=== PATIENT | female | born 1980 ===

== ENCOUNTER 2024-12-06 12:42 | Emergency (ER) | payer MEDICAID, SELFPAY ==
[2024-12-06 13:18] VITALS: BP 130/77; PULSE 79; RESP 16; TEMP 36.9; O2SAT 98; BMI 33.6
--- NOTE | 2024-12-06 13:20 | ED.GENADULT ---
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 Patient states that over the last 3 days she felt as though something is wrong with her body and is having right upper quadrant fullness . Patient states that she has been in the process of being tapered off of multiple psychiatric medications and things have been difficult . Patient states that she had genetic testing done and saw on that genetic testing that she is at higher risk for pancreatic issues . Related Data Allergies Allergy/AdvReac Type Severity Reaction Status Date / Time No Known Allergies (No Known Allergy Verified 12/06/24 13:19 Allergies*) Review of Systems Constitutional: Constitutional: Reports as per HPI Eyes: Eyes: Reports as per HPI ENT: Reports as per HPI Cardiovascular: Cardiovascular: Reports as per HPI Respiratory: Respiratory: Reports as per HPI Gastrointestinal: Gastrointestinal: Reports as per HPI Genitourinary: Genitourinary: Reports as per HPI Musculoskeletal: Musculoskeletal: Reports as per HPI Integumentary/Breasts: Skin/Breast: Reports as per HPI Neurologic: Reports as per HPI Psychiatric: Psychiatric: Reports as per HPI Endocrine: Endocrine: Reports as per HPI Hematologic/Lymphatic: Hematologic/Lymphatic: Reports as per HPI Allergic/Immunologic: Allergic/Immunologic: Reports as per HPI [facility] Past Medical History Attestation statement: The following information was validated with the patient. Source: old records reviewed and nursing notes reviewed Social History Social History Advance Directives: No Advance Directives Information Provided: No Physical Exam ED Vital Signs: Vital Signs - 24 hr 12/06/24 13:18 12/06/24 15:42 Temperature 98.4 F 98.4 F Pulse Rate 79 79 Respiratory Rate 16 16 Blood Pressure 130/77 130/77 Pulse Oximetry 98 98 Oxygen Delivery Method Room Air Room Air BMI result Body Mass Index 33.6 Const General: cooperative, no acute distress, alert and awake Nutritional Appearance: well nourished Orientation/consciousness: patient oriented x3 HENWI Head: Yes normal to inspection and Yes atraumatic Ears: hearing grossly normal bilaterally and external ears normal General nose exam: Normal external nose present, no nasal discharge noted and no epistaxis Face and sinus: Yes normal facial exam, No abrasion and No laceration Mouth: Normal oral and palatal mucosa present, no drooling and no muffled voice Eyes General: appearance normal, both eyes and all related structures Periorbital: periorbital findings normal Eyelids: Yes eyelids normal Conjunctivae: conjunctivae normal Pupils: Equal, round and reactive pupils present EOM: EOMs intact bilaterally Neck Neck: Yes normal visual inspection and Yes full ROM Resp Effort & Inspection: normal respiratory effort and able to speak in complete sentences Neuro General: patient oriented x3, moves all extremities and CN's II-XI intact bilaterally Cranial nerves: Yes Equal, round and reactive pupils present Cognition (Neuro): normal cognition Extrem General: Yes normal to inspection, Yes full ROM and Yes capillary refill normal Psych Other: intermittently tearful Appearance: grossly normal Mental Status: mental status grossly normal Affect: Labile affect present Course Course Course Narrative: Rapid medical examination performed in triage by Alyssa Chang PA-C. Patient is a 44 year old assigned female at presenting to the emergency department with RUQ abdominal pain. Detailed physical exam and review of systems are deferred to the farm tractor operator. EKG, labs ordered. Patient placed back in the waiting room pending room availability and results. 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 Patient's limited physical exam performed inside of and directly outside of the triage space was as noted in the physical exam portion of this note. Patient was ambulating with a steady gait and no assistance, speaking clear sentences. Patient was intermittently tearful. Patient's blood work showed a WBC count of 11.4 and an ALT of 42. Patient's elevated WBC count is likely secondary to a stress reaction and not an infectious pathology. Patient unlikely to have liver pathology given the rest of her LFTs were WNL. The rest of the patient's lab work was unremarkable. Patient did not provide a urine sample while in the department. Patient's EKG was unremarkable. Patient came to the triage space from the waiting room and requested an estimation on how much longer she would have to wait and for her results to be explained to her. I explained to the patient all of her results and that I recommend she continue to wait to receive medication for her abdominal pain / nausea as well as imaging of her abdomen. The patient asked how she would get her results and I explained to the patient that there is a patient portal but that I would also print them out for her. After approximately 20 minutes, the patient returned to the triage space and stated that she could no longer wait in the waiting room because of her mental illness at which point I offered to let her wait in a recliner within the hallway space outside of triage but away from the waiting room and she stated that she could not tolerate waiting there either. At that point, the patient asked me if I understood mental illness and her partner then stated a teenager got brought back and let go before she was brought back and began to raise his voice. I attempted to explain to the patient and her partner that the emergency department has a triage system and at that time - the patient's partner stated you're not speaking professionally . I attempted to clarify what part of my triage explanation was unprofessional, he stated you should apologize at which point I did apologize to the patient and her partner about the miscommunication during our interaction and attempted again to clarify and de-escalate the situation. At that point, the patient grabbed her discharge paperwork and lab results from my hand and demanded to leave. I again explained to the patient that I recommend she wait for imaging and she again stated she understood that she should wait but she can't tolerate waiting any longer and will be leaving. Patient was let out of the department by a passing by biomedical engineering technologist. Differential Diagnosis Differential Diagnoses: The differential diagnosis associated with the presentation includes Epigastric pain Abdominal pain Nausea Admission/Observation Consideration of admission/observation: Escalation of care including admission/observation considered Patient would have been admitted to the hospital had her partially completed work up had any findings where hospital admission was appropriate, she completed her work up - including imaging, her clinical presentation warranted hospital admission, and had she not demanded to leave. Lab Data MDM Lab Attestation statement: I reviewed the patient's lab results. My interpretation of these results are in the MDM Rationale portion of this note. 12/06/24 13:42 12/06/24 13:42 Labs: Lab Results 12/06/24 Range/Units 13:42 WBC 11.4 H (4.8-10.8) X10*3/uL RBC 4.90 (4.20-5.50) X10*6/uL Hgb 15.3 (12.0-16.0) g/dl Hct 46.8 (37.0-47.0) % MCV 95.5 (80.0-98.0) fL MCH 31.2 (27.0-33.0) pg MCHC 32.7 (31.0-35.0) g/dl RDW 13.0 (11.0-16.0) % Plt Count 326 (160-400) X10*3/uL MPV 10.0 (9.4-12.3) fL Immature Gran % (Auto) 0.4 (0.0-0.4) % Neut % (Auto) 58.8 (45-73) % Lymph % (Auto) 30.5 (20-40) % Buchanan % (Auto) 5.8 (2-11) % Eos % (Auto) 3.8 (0-4) % Baso % (Auto) 0.7 (0-2) % Lymph # (Auto) 3.5 (1.2-4.9) X10*3/uL Buchanan # (Auto) 0.7 (0.1-1.2) X10*3/uL Eos # (Auto) 0.4 (0.0-0.4) X10*3/uL Baso # (Auto) 0.1 (0.0-0.2) X10*3/uL Abs Immat Gran (auto) 0.04 H (0.00-0.03) X10*3/uL Absolute Neuts (auto) 6.7 (2.0-8.3) x10*3/uL Absolute Nucleated RBC 0.000 (0.0-0.012) X10*3/uL Nucleated RBC % (auto) 0.0 (0.0-0.2) /100WBC Sodium 139 (135-145) mmol/L Potassium 4.8 (3.3-5.1) mmol/L Chloride 106 (96-108) mmol/L Carbon Dioxide 27 (22-29) mmol/L Anion Gap 11 L (12-20) BUN 7 L (9-16) mg/dL Creatinine 0.69 (0.5-1.4) mg/dL Estim Creat Clear Calc 115.0 Estimated GFR > 60 Random Glucose 111 (60-115) mg/dL Calcium 9.6 (8.4-10.2) mg/dL Total Bilirubin 0.8 (0.0-1.0) mg/dL AST 26 (5-31) U/L ALT 42 H (0-31) U/L Alkaline Phosphatase 85 (39-117) U/L Total Protein 7.5 (6.5-8.0) g/dL Albumin 4.8 (3.5-5.0) g/dL Lipase 27 (8-78) U/L Discharge Plan Discharge Clinical Impression: Epigastric abdominal pain, Nausea Patient Disposition: Home, Self-Care Instructions: Acute Nausea and Vomiting (DC), Acute Abdominal Pain (DC) Additional Instructions: Your lab work today was reassuring. If you change your mind about having imaging obtained - please return to your nearest emergency department or call 911 immediately. IF you are prescribed home medications and/or you are taking over the counter medications at home - it is very important you continue to do so as prescribed / directed unless told otherwise. Follow up with your primary care provider. Return to the emergency department immediately if your symptoms worsen or if you develop any numbness, tingling, dizziness, shortness of breath, difficulty breathing, chest pain, blurry vision, loss of vision, nausea, vomiting, abdominal pain, fever, chills, back pain, or any other complaints. Please see the information below about our Patient Portal. If you are not yet enrolled in the [facility] Patient Portal, you will receive an enrollment email invitation following your visit to any [facility] care setting. You may also self-enroll in the Patient Portal by visiting our website: [email or web address] The following information is required to access the Patient Portal: - Your [facility] Medical Record Number - Your personal home email address (must match what is in your electronic medical record, Registration staff can assist with this) - Name - Date of Capabilities of the Patient Portal: - Message some providers - View upcoming appointments - Access your health summary, medical history, and visit history - View current conditions and allergies - View procedure and lab results - View your medications, including guidelines, side effects, and precautions - Complete pre-appointment questionnaires requested by your provider - Ready summary reports of your office visits and procedures To access the Patient Portal Mobile [employer], follow these directions: - Search [employer] in the [employer] Store or [employer] Store - Download the Rosalinda - Search for [facility] - Enter your login/password Referrals: Brice Donato PA-C [Primary Care Provider, Internal Medicine] Interventions: ED Discharge Assessment Last Done: 12/06/24 15:42 Discharge Date/Time: 12/06/24 16:01 Print Language: Sami
--- NOTE | 2024-12-06 13:21 | ECG_ITS ---
Test Reason : dizziness / sob Blood Pressure : */* mmHG Vent. Rate : 78 BPM Atrial Rate : 78 BPM P-R Int : 176 ms QRS Dur : 80 ms QT Int : 378 ms P-R-T Axes : 46 49 33 degrees QTcB Int : 430 ms Normal sinus rhythm Normal ECG No previous ECGs available Referred By: Alyssa Chang Electronically Signed By: FAIZA TURNER
[2024-12-06 13:48] LABS: MANUAL DIFF FLAG NO
[2024-12-06 13:51] LABS: Hematocrit 46.8 % (37.0-47.0); Hemoglobin 15.3 g/dl (12.0-16.0); Imm Gran Abs Auto 0.04 X10*3/uL (0.00-0.03); Imm Gran Pct Auto 0.4 % (0.0-0.4); Lymphocytes Absolute Auto 3.5 X10*3/uL (1.2-4.9); Mean Corpuscular HGB Conc 32.7 g/dl (31.0-35.0); Mean Corpuscular Hemoglobin 31.2 pg (27.0-33.0); Mean Corpuscular Volume 95.5 fL (80.0-98.0); NRBC Abs Auto 0.000 X10*3/uL (0.0-0.012); NRBC Pct Auto 0.0 /100WBC (0.0-0.2); Platelet Count 326 X10*3/uL (160-400); Red Blood Count 4.90 X10*6/uL (4.20-5.50); White Blood Count 11.4 X10*3/uL (4.8-10.8)
[2024-12-06 14:04] LABS: Alanine Aminotransferase 42 U/L (0-31); Albumin Level 4.8 g/dL (3.5-5.0); Alkaline Phosphatase 85 U/L (39-117); Anion Gap 11 (12-20); Aspartate Amino Transferase 26 U/L (5-31); Blood Urea Nitrogen 7 mg/dL (9-16); Calcium 9.6 mg/dL (8.4-10.2); Carbon Dioxide 27 mmol/L (22-29); Chloride 106 mmol/L (96-108); Creatinine Clr Calc Pharmacy 115.0; Estimated Glomerular Filt Rate > 60; Lipase 27 U/L (8-78); Potassium 4.8 mmol/L (3.3-5.1); Sodium 139 mmol/L (135-145); Total Protein 7.5 g/dL (6.5-8.0)
[2024-12-06 15:42] VITALS: BP 130/77; PULSE 79; RESP 16; TEMP 36.9; O2SAT 98
--- NOTE | 2024-12-06 15:59 | PC.NURSE ---
Pt becoming escalated in waiting room. Refusing to wait for imaging. Discharged by provider, in an agitated state. Pt's tour narrator becoming increasingly threatening, verbally aggressive.
--- OUTSIDE RECORDS SUMMARY | 2024-12-06 18:58 | XMS_ITS | Encounter Summary ---
Author Organization [facility] Address [address] [place] [phone] Phone Care Team Providers Care Escapement Maker Name Role Phone Mandie Christianson NP Unavailable [phone] Carissa Mulligan MD Unavailable [phone] Mandie Christianson WRAPPING CLERK Primary Care Provider [phone] Isrrael Corona MD Unavailable Renata Dior BILLET CUTTER Primary Care Provider [phone] Brice DonatoC Primary Care Provider [phone] Encounter Details Date Type Department Care Team (Late st Contact Info) Description 04/04/2020 Procedure Pass [facility] - [address] [place] [address] Social History Tobacco Use Types Packs/Day Years Used Date Smoking Tobacco: Every Day Cigarettes 0.3 17 Smokeless Tobacco: Never Alcohol Use Standard Drinks/Week Comments Yes 0 (1 standard drink = 0.6 oz pure alcohol) 1-2 glasses of wine per night lately Child or Family Care Answer Date Record ed Do you have problems with on e of the following making it difficult for you to work, study, or receive health care? No 04/03/2020 Education Answer Date Recorded Are you interested in help w ith more adult education (for example, completing high school, GED, job training, learning the Afghan language, technical skills, or developing parenting skills)? No 04/03/2020 Are you concerned about learning? Not on file 04/03/2020 Not on file 04/03/2020 Not on file 04/03/2020 Food Answer Date Recorded Within the past 6 months we worried whether our food would run out before we got money to buy more. Never True 04/03/2020 Within the past 6 months the food we bought just didn't last and we didn't have enough money to get more. Never True Paying for Meds Answer Date Recorded Do you have trouble paying for medicines? No 04/03/2020 Paying Utility Bills Answer Date Record ed Do you have trouble paying your heating or elect ricity bill? No 04/03/2020 Transportation Answer Date Recorded Has the lack of transportati on kept you from medical appointments or from getting medications? No 04/03/2020 Comments No Sex and Gender Information Value Date Recorded Sex Assigned at Not on file Legal Sex Female 9:22 PM EDT Gender Identity Not on file Sexual Orientation Not on file documented as of this encounter Plan of Treatment Upcoming Encounters Date Type Department Care Team (Late st Contact Info) Description 11/12/2024 Procedure Pass [facility] [address] [place] [address] 12/08/2024 10:00 AM EDT Office Visit [facility] Internal Medicine [address] [place] [address] Roxann Rocha PA-C [address] [place] [address] 12/30/2024 2:30 PM EST Appointment [facility] [address] [place] [address] Brice Donato PA-C [address] [place] [address] 06/13/2025 11:20 AM EDT Office Visit [facility] Internal Medicine [address] [place] [address] Brice Donato PA-C [address] [place] [address] documented as of this encounter Visit Diagnoses Not on filedocumented in this encounter Additional Health Concerns Assessment Noted Time PHQ-9 Depression Total Score: 11 021 5:50 PM EST PHQ-2 Depression Total Score: 4 04/03/19 21 5:50 PM EST documented as of this encounter Care Teams Escapement Maker Relationship Specialty Start Date End Date Mandie Christianson, WRAPPING CLERK PCP - General Family Medicine 01/05/18 04/15/23 Renata Dior FNP [address] [place] [address] PCP - General Nurse Practitioner 04/16/23 04/01/24 Brice Donato PA-C [address] [place] [phone] PCP - General Physician Parking Meter Collector 04/02/24 Mandie Christianson, WRAPPING CLERK Historical LMR Provider 11/27/16 Carissa Mulligan MD [address] [place] [address] Orthopedics [facility] Sports Medicine, [place] [address] Historical LMR Provider 11/27/16 Isrrael Corona MD [address] [place] [phone] Insurance Assigned Provider 05/19/21 10/19/22 documented as of this encounter Additional Source Comments The information contained in this document represents components of the legal health record. It is not the complete legal health record.[facility]
--- OUTSIDE RECORDS SUMMARY | 2024-12-06 18:58 | XMS_ITS | Encounter Summary ---
Author Organization [facility] Address [address] [address] Phone Care Team Providers Care Wildlife Forensic Geneticist Name Role Phone Mandie Christianson DIVE SUPERINTENDENT Unavailable [phone] Brice Donato PA-C Primary Care Provider Encounter Details Date Type Department Care Team (Late st Contact Info) Description 06/09/2024 Procedure Pass [facility], [address] [address] Social History Tobacco Use Types Packs/Day Years Used Date Smoking Tobacco: Some Days Cigarettes 0.3 18.8 Started: 03/15/2004; Last attempted to quit: 03/15/2021 Smokeless Tobacco: Never Comments:on and off Alcohol Use Standard Drinks/Week Comments Not Currently 0 (1 standard drink = 0.6 oz pur e alcohol) 3-4 drinks, 2-4 x month Child or Family Care Answer Date Record ed Do you have problems with on e of the following making it difficult for you to work, study, or receive health care? I choose not to answer 06/09/2024 Education Answer Date Recorded Are you interested in help w ith more adult education (for example, completing high school, GED, job training, learning the Montenegrin language, technical skills, or developing parenting skills)? No 06/09/2024 Are you concerned about learning? Not on file 06/09/2024 No 06/09/2024 Yes 06/09/2024 Food Answer Date Recorded Within the past 6 months we worried whether our food would run out before we got money to buy more. Never True 06/09/2024 Within the past 6 months the food we bought just didn't last and we didn't have enough money to get more. Never True Residential Stability Answer Date Recor ded What is your housing situation today? I have yair ling 06/09/2024 How many times have you move d in the past 12 months? Zero (I did not move) 06/09/2024 Paying for Meds Answer Date Recorded Do you have trouble paying for medicines? No 06/09/2024 Paying Utility Bills Answer Date Record ed Do you have trouble paying your heating or elect ricity bill? No 06/09/2024 Transportation Answer Date Recorded Has the lack of transportati on kept you from medical appointments or from getting medications? No 06/09/2024 Unemployment Answer Date Recorded Are you currently unemployed or working on a part-time or temporary basis, and looking for work? I choose not to answer 06/09/2024 Digital Access Answer Date Recorded No 06/09/2024 Yes 06/09/2024 Do you have reliable internet access at home? Ye s 06/09/2024 Do you have a device (e.g., phone, tablet, computer) with a working camera? Yes 06/09/2024 SNAP & WIC Answer Date Recorded Do you receive benefits from SNAP (the Supplemental Nutrition Assistance Program) or the Food Stamp Program? Not sure 06/09/2024 SNAP is a free program that can help you and your family get access to healthy foods, nutrition classes, utility discounts, and more. Would you be interested in learning more? Not sure 06/09/2024 Can we help you enroll in SNAP? Not on file 06/09/2024 Benefits received from WIC? Not on file 05/13 WIC is a free program, interested in learning mo re? Not on file 06/09/2024 Can we help you enroll in WIC? Not on file 0 06/09/2024 Intimate Partner Violence Answer Date R ecorded Denied Basic Needs Not on file 06/09/2024 In the past 12 months have y ou been in a relationship with a person who hurts, threatens, or tries to control you? No 06/09/2024 Worried food would run out Not on file 06/09 In the past 12 months have y ou been in a relationship with a person who hurts, threatens, or tries to control you? No 06/09/2024 Comments No Sex and Gender Information Value Date Recorded Sex Assigned at Not on file Legal Sex Female 9:22 PM EDT Gender Identity Not on file Sexual Orientation Not on file documented as of this encounter Plan of Treatment Upcoming Encounters Date Type Department Care Team (Late st Contact Info) Description 11/12/2024 Procedure Pass [facility] [address] [place] [id number] 12/08/2024 10:00 AM EDT Office Visit [facility] Internal Medicine [address] [place] [address] Roxann Rocha PA-C [address] [place] [address] 12/30/2024 2:30 PM EST Appointment [facility] Echo [facility] [address] [place] [address] Brice Donato PA-C [address] [place] [phone] 06/13/2025 11:20 AM EDT Office Visit [facility] Internal Medicine [address] [place] [address] Brice Donato PA-C [address] [place] [address] documented as of this encounter Visit Diagnoses Not on filedocumented in this encounter Additional Health Concerns Assessment Noted Time PHQ-9 Depression Total Score: 16 025 2:00 AM EDT PHQ-2 Depression Total Score: 5 06/10/19 25 2:00 AM EDT documented as of this encounter Care Teams Wildlife Forensic Geneticist Relationship Specialty Start Date End Date Brice Donato PA-C [address] [place] [id number] [email or web address] PCP - General Physician Drywall Metal Stud Worker 04/02/24 Mandie Christianson NP [email or web address] Historical LMR Provider 11/27/16 documented as of this encounter Additional Source Comments The information contained in this document represents components of the legal health record. It is not the complete legal health record.[facility]
--- OUTSIDE RECORDS SUMMARY | 2024-12-06 18:58 | XMS_ITS | Encounter Summary ---
Author Organization [facility] Address [address] [place] [address] Phone Care Team Providers Care Protective Signal Operations Supervisor Name Role Phone Mandie Christianson SLIP TENDER Unavailable [phone] Mandie Christianson SLIP TENDER Primary Care Provider [phone] Isrrael Corona MD Unavailable Renata Dior ASSISTANT MANAGER QUALITY MANAGEMENT Primary Care Provider [phone] Brice Donato PA-C Primary Care Provider [phone] Encounter Details Date Type Department Care Team (Late st Contact Info) Description 05/31/2022 Procedure Pass [facility] - [address] [place] [address] Social History Tobacco Use Types Packs/Day Years Used Date Smoking Tobacco: Former Cigarettes 0.3 17 0 03/15/2004 - 03/15/2021 Smokeless Tobacco: Never Comments:on/off for the past year (04/12/2021) Alcohol Use Standard Drinks/Week Comments Yes 0 (1 standard drink = 0.6 oz pure alcohol) 2-3 glasses of wine 3 days per week Child or Family Care Answer Date Record ed Do you have problems with on e of the following making it difficult for you to work, study, or receive health care? No 05/28/2022 Education Answer Date Recorded Are you interested in help w ith more adult education (for example, completing high school, GED, job training, learning the Surinamese language, technical skills, or developing parenting skills)? No 05/28/2022 Food Answer Date Recorded Within the past 6 months we worried whether our food would run out before we got money to buy more. Never True 05/28/2022 Within the past 6 months the food we bought just didn't last and we didn't have enough money to get more. Never True Residential Stability Answer Date Recor ded What is your housing situation today? I have yair sing 05/28/2022 How many times have you move d in the past 12 months? Zero (I did not move) 05/28/2022 Paying for Meds Answer Date Recorded Do you have trouble paying for medicines? No 05/28/2022 Paying Utility Bills Answer Date Record ed Do you have trouble paying your heating or elect ricity bill? No 05/28/2022 Transportation Answer Date Recorded Has the lack of transportati on kept you from medical appointments or from getting medications? No 05/28/2022 Unemployment Answer Date Recorded Are you currently unemployed or working on a part-time or temporary basis, and looking for work? No 05/28/2022 Comments No Sex and Gender Information Value Date Recorded Sex Assigned at Not on file Legal Sex Female 9:22 PM EDT Gender Identity Not on file Sexual Orientation Not on file documented as of this encounter Plan of Treatment Upcoming Encounters Date Type Department Care Team (Late st Contact Info) Description 11/12/2024 Procedure Pass [facility] [address] [place] [address] 12/08/2024 10:00 AM EDT [facility] [address] [place] [address] Roxann Rocha PA-C [address] [place] [address] 12/30/2024 2:30 PM EST Appointment [facility] [address] [place] [address] Brice Donato PA-C [address] [place] [address] 06/13/2025 11:20 AM EDT Office Visit [facility] [address] [place], [place] [phone] Brice Donato PA-C [address] [place] [address] [email or web address] documented as of this encounter Visit Diagnoses Not on filedocumented in this encounter Additional Health Concerns Assessment Noted Time PHQ-9 Depression Total Score: 11 021 5:50 PM EST PHQ-2 Depression Total Score: 0 05/29/19 23 8:44 AM EDT documented as of this encounter Care Teams Protective Signal Operations Supervisor Relationship Specialty Start Date End Date Mandie Christianson SLIP TENDER PCP - General Family Medicine 01/05/18 04/15/23 Renata Dior FNP [address] [place] [id number] PCP - General Nurse Practitioner 04/16/23 04/01/24 Brice Donato PA-C [address] [place] [phone] PCP - General Physician Director Of Community Services 04/02/24 Mandie Christianson SLIP TENDER Historical LMR Provider 11/27/16 Isrrael Corona MD [address] [place] [phone] Insurance Assigned Provider 05/19/21 10/19/22 documented as of this encounter Additional Source Comments The information contained in this document represents components of the legal health record. It is not the complete legal health record.[facility]
--- OUTSIDE RECORDS SUMMARY | 2024-12-06 18:58 | XMS_ITS | Encounter Summary ---
Author Organization [facility] Address [address] [place] [address] Phone Care Team Providers Care Supervisor Winter Name Role Phone Mandie Christianson SURVEILLANCE AGENT Unavailable [phone] Renata Dior CARDIOVASCULAR TECHNICIAN Primary Care Provider [phone] Brice Donato PA-C Primary Care Provider [phone] Encounter Details Date Type Department Care Team (Late st Contact Info) Description 08/18/2023 Procedure Pass [address] [place] [address] Social History Tobacco Use Types Packs/Day Years Used Date Smoking Tobacco: Former Cigarettes 0.3 17 0 03/15/2004 - 03/15/2021 Smokeless Tobacco: Never Comments:on/off for the past year (04/12/2021) Alcohol Use Standard Drinks/Week Comments Yes 2 (1 standard drink = 0.6 oz pure alcohol) 2-3 glasses of wine 1 days per week Child or Family Care Answer Date Record ed Do you have problems with on e of the following making it difficult for you to work, study, or receive health care? I choose not to answer 04/17/2023 Education Answer Date Recorded Are you interested in help w ith more adult education (for example, completing high school, GED, job training, learning the Hungarian language, technical skills, or developing parenting skills)? No 04/17/2023 Are you concerned about learning? Not on file 04/17/2023 No 04/17/2023 Yes 04/17/2023 Food Answer Date Recorded Within the past 6 months we worried whether our food would run out before we got money to buy more. I choose not to answer 04/17/2023 Within the past 6 months the food we bought just didn't last and we didn't have enough money to get more. I choose not to answer 04/17/2023 Residential Stability Answer Date Recor ded What is your housing situation today? I have yair ling 04/17/2023 How many times have you move d in the past 12 months? Zero (I did not move) 04/17/2023 Paying for Meds Answer Date Recorded Do you have trouble paying for medicines? No 04/17/2023 Paying Utility Bills Answer Date Record ed Do you have trouble paying y our heating or electricity bill? I choose not to answer 04/17/2023 Transportation Answer Date Recorded Has the lack of transportati on kept you from medical appointments or from getting medications? I choose not to answer 04/17/2023 Unemployment Answer Date Recorded Are you currently unemployed or working on a part-time or temporary basis, and looking for work? I choose not to answer 04/17/2023 Digital Access Answer Date Recorded No 04/17/2023 Yes 04/17/2023 Do you have reliable internet access at home? Ye s 04/17/2023 Do you have a device (e.g., phone, tablet, computer) with a working camera? Yes 04/17/2023 Intimate Partner Violence Answer Date R ecorded Denied Basic Needs Not on file 04/17/2023 In the past 12 months have y ou been in a relationship with a person who hurts, threatens, or tries to control you? No 04/17/2023 Worried food would run out Not on file 04/16 In the past 12 months have y ou been in a relationship with a person who hurts, threatens, or tries to control you? No 04/17/2023 Comments No Sex and Gender Information Value Date Recorded Sex Assigned at Not on file Legal Sex Female 9:22 PM EDT Gender Identity Not on file Sexual Orientation Not on file documented as of this encounter Plan of Treatment Upcoming Encounters Date Type Department Care Team (Late st Contact Info) Description 11/12/2024 Procedure Pass [facility] [address] [place] [address] 12/08/2024 10:00 AM EDT Office Visit [facility] [address] [place] [address] Roxann Rocha PA-C [address] [place] [address] 12/30/2024 2:30 PM EST Appointment [facility] [address] [place] [address] Brice Donato PA-C [address] [place], [place] [phone] 06/13/2025 11:20 AM EDT Office Visit [facility] [address] [place] [address] Brice Donato PA-C [address] [place], [place] [phone] [email or web address] documented as of this encounter Visit Diagnoses Not on filedocumented in this encounter Additional Health Concerns Assessment Noted Time PHQ-9 Depression Total Score: 19 024 2:24 PM EDT PHQ-2 Depression Total Score: 3 08/11/19 24 2:24 PM EDT documented as of this encounter Care Teams Supervisor Winter Relationship Specialty Start Date End Date Renata Dior FNP [address] [place] [address] PCP - General Nurse Practitioner 04/16/23 04/01/24 Brice Donato PA-C [address] [place] [id number] [email or web address] PCP - General Physician Motorcycle Deliverer 04/02/24 Mandie Christianson, SURVEILLANCE AGENT [email or web address] Historical LMR Provider 11/27/16 documented as of this encounter Additional Source Comments The information contained in this document represents components of the legal health record. It is not the complete legal health record.[facility]
--- OUTSIDE RECORDS SUMMARY | 2024-12-06 18:58 | XMS_ITS | Encounter Summary ---
Author Organization [facility] Address [address] [place] [address] Phone Care Team Providers Care Psychologist Educational Name Role Phone Mandie Christianson SAFETY EQUIPMENT TESTING SPECIALIST Unavailable [phone] Brice Donato PA-C Primary Care Provider [phone] Reason for Visit * Reason Onset Date Comments RUQ pain 12/06/2024 Encounter Details Date Type Department Care Team (Late st Contact Info) Description 12/06/2024 Telephone [employer] [facility] [address] [place], [place] [phone] Margaret Rojas, MOHAN [address] [place], [place] [id number] [email or web address] RUQ pain Social History Tobacco Use Types Packs/Day Years [...] high school, GED, job training, learning the Algerian language, technical skills, or developing parenting skills)? [...] housing situation today? I have yair sing 06/09/2024 How many times have you move [...] on file documented as of this encounter Progress Notes * Margaret Rojas RN - 12/06/2024 1:07 PM EDT LVM for Ladan to call back. * Margaret Rojas RN - 12/06/2024 1:07 PM EDT Images from the original note were not included. Brice Donato PA-C [facility] Caller: Unspecified (Today, 11:23 AM) Who is titrating her off of her benzos and SSRI? As for her right upper quadrant pain this could be her gallbladder or possibly pancreatitis as it can radiate over to the right upper quadrant. I agree if her pain does worsen she is going to need norma seen in the emergency department where they are able to do urgent imaging. * Margaret Rojas RN - 12/06/2024 11:26 AM EDT Spoke to Ladan. States she is having right upper quadrant pain. Pain is constant, 3/10 at worst. States it's not excruciating, but a solid cramp. States she does have some abdominal bloating. States she is also coming off benzodiazepines, unsure if it's relation. No vomiting, fever. Has some nausea, hasn't eaten much since yesterday. No jaundice. She has loose stool intermittently, 1-2 times a day, but does not think this is related, this is common for her. She is trying to avoid the ER. Scheduled Friday with [facility]. Then she states her abdominal is tender to the touch, just a little sore,not dramatic, not extreme pain. Advised if abdomen is tender to the touch, she should be seen today in the ER. She started crying, and States she is going through withdrawals from SSRI's and Benzos.She states I am calling because I don't think I can handle the ER, and I won't go, unless I am dying, and the pain is not that bad It just feels a little better when I hold it, it's not extreme pain. * Margaret Rojas RN - 12/06/2024 11:24 AM EDT Pt called and LVM. States she thinks she has pancreatitis. States she has RUQ pain, that goes through to the back. Has had this for 1-2 days. States it's crampy and achy. No fever, nausea or vomiting. States she isn't a big drinker, but she is a smoker. She is wondering if there is testing, labs, or imaging Brice can do. She does not want to to go to the ER. documented in this encounter Plan of Treatment Upcoming Encounters Date Type Department Care Team (Late st Contact Info) Description 11/12/2024 Procedure Pass [facility] [address] [place] [address] 12/08/2024 10:00 AM EDT Office Visit [facility] [address] [place] [address] Roxann Rocha PA-C [address] [place] [address] 12/30/2024 2:30 PM EST Appointment [facility] [address] [place] [address] Brice Donato PA-C [address] [place] [address] [email or web address] 06/13/2025 11:20 AM EDT Office Visit [facility] [address] [place] [address] Brice Donato PA-C [address] [place] [address] documented as of this encounter Visit Diagnoses Not on filedocumented in this encounter Additional Health Concerns Assessment Noted Time PHQ-9 Depression Total Score: 16 025 2:00 AM EDT PHQ-2 Depression Total Score: 5 06/10/19 25 2:00 AM EDT documented as of this encounter Care Teams Psychologist Educational Relationship Specialty Start Date End Date Brice Donato PA-C [address] [place] [address] PCP - General Physician Craft Coordinator 04/02/24 Mandie Christianson NP Historical LMR Provider 11/27/16 documented as of this encounter Additional Source Comments The information contained in this document represents components of the legal health record. It is not the complete legal health record.[facility]
--- OUTSIDE RECORDS SUMMARY | 2024-12-06 18:58 | XMS_ITS | Encounter Summary ---
Author Organization [facility] Address [address] [address] Phone Care Team Providers Care Roller Shop Utility Worker Name Role Phone Mandie Christianson COLLISION REPAIR TECHNICIAN Unavailable [phone] Brice Donato PA-C Primary Care Provider Encounter Details Date Type Department Care Team (Late st Contact Info) Description 06/09/2024 Procedure Pass [facility], [address] [address] Social History Tobacco Use Types Packs/Day Years [...] high school, GED, job training, learning the Bermudian language, technical skills, or developing parenting skills)? [...] st Contact Info) Description 11/12/[address] [facility] Echo Lab [address] [place] [address] 12/08/2024 10:00 AM EDT Office Visit [facility] Internal Medicine [address] [place] [address] Roxann Rocha PA-C [address] [place] [address] 12/30/2024 2:30 PM EST Appointment [facility] Echo Lab [address] [place] [address] Brice Donato PA-C [address] [place] [address] 06/13/2025 11:20 AM EDT Office Visit [facility] Internal Medicine [address] [place] [address] Brice Donato PA-C [address] [place] [address] documented as of this encounter Visit Diagnoses Not on filedocumented in this encounter Additional Health Concerns Assessment Noted Time PHQ-9 Depression Total Score: 16 025 2:00 AM EDT PHQ-2 Depression Total Score: 5 06/10/19 25 2:00 AM EDT documented as of this encounter Care Teams Roller Shop Utility Worker Relationship Specialty Start Date End Date Brice Donato PA-C [address] [place] [address] [email or web address] PCP - General Physician Manager Of Tax 04/02/24 Mandie Christianson NP Historical LMR Provider 11/27/16 documented as of this encounter Additional Source Comments The information contained in this document represents components of the legal health record. It is not the complete legal health record.[facility]
--- OUTSIDE RECORDS SUMMARY | 2024-12-06 18:58 | XMS_ITS | Clinical Summary ---
Author Organization [employer] Address [address] [facility] [address] [place] [address] Care Team Providers Care Director Digital Name Role Phone Unavailable Primary Care Provider Unavailabl e Social History Tobacco Use Types Packs/Day Years Used Date Smoking Tobacco: Never Assessed Comments Unknown Sex and Gender Information Value Date Recorded Sex Assigned at Female 12/10/2021 10:36 AM EDT Legal Sex Female 10:36 AM EDT Gender Identity Female 12/10/2021 10:36 AM EDT Sexual Orientation Straight 12/10/2021 10 :36 AM EDT Last Filed Vital Signs Vital Sign Reading Time Taken Comments Blood Pressure 103/73 04/20/2019 12:03 AM EDT Pulse 72 04/20/2019 12:03 AM EDT Temperature - - Respiratory Rate - - Oxygen Saturation - - Inhaled Oxygen Concentration - - Weight - - Height - - Body Mass Index - - Plan of Treatment Health Maintenance Due Date Last Done Comments CT Colonography 1979 Colonoscopy 1979 Colorectal Cancer Screening 1979 Depression Screening 1979 FIT DNA/Cologuard 1979 FIT 1979 FOBT 1979 Sigmoidoscopy 1979 Disability Screening 1979 Alcohol/Substance Use Screening 1991 Tobacco Screening 1991 Family Planning (PISQ) 05/29/1994 HPV Vaccines (1 - 3-dose series) 05/29/1994 DTaP/Tdap/Td Vaccines (1 - Tdap) 05/29/1998 Hepatitis B Vaccines (1 of 3 - 19+ 3-dose series) 05/29/1998 Pap Smear 05/29/2000 Cervical Cancer Screening 05/29/2009 HPV/Cotest 05/29/2009 Mammogram 2019 COVID-19 Vaccine ( - 2023-2 5 season) 2024 Influenza Vaccine (#1) 2024 Zoster Vaccines (1 of 2) 05/29/2029 RSV Patients and Pa tients Aged 60 years or older (1 - 1-dose 75+ series) 05/29/2054 HIB Vaccines Aged Out No longer eligi ble based on patient's age to complete this topic Hepatitis A Vaccines Aged Out No long er eligible based on patient's age to complete this topic IPV Vaccines Aged Out No longer eligi ble based on patient's age to complete this topic Meningococcal B Vaccine Aged Out No l onger eligible based on patient's age to complete this topic Meningococcal Vaccine Aged Out No alida mily eligible based on patient's age to complete this topic Pneumococcal Vaccine: Pediat rics (0 to 5 Years) and At-Risk Patients (6 to 49) Years Aged Out No longer eligible b ased on patient's age to complete this topic RSV under 20 months Aged Out No longe r eligible based on patient's age to complete this topic Rotavirus Vaccines Aged Out No longer eligible based on patient's age to complete this topic
--- OUTSIDE RECORDS SUMMARY | 2024-12-06 18:58 | XMS_ITS | Encounter Summary ---
Author Organization [employer] Address [address] [facility] [address] [place] [address] Care Team Providers Care Carpenters Helper Name Role Phone Unavailable Primary Care Provider Unavailabl e Encounter Details Date Type Department Care Team (Latest Contact Info) Description 04/26/2020 Abstract [facility] CONVERSIONS Dental, Provider, DDS Social History Tobacco Use Types Packs/Day Years Used Date Smoking Tobacco: Never Assessed Comments Unknown Sex and Gender Information Value Date Recorded Sex Assigned at Female 12/10/2021 10:36 AM EDT Legal Sex Female 10:36 AM EDT Gender Identity Female 12/10/2021 10:36 AM EDT Sexual Orientation Straight 12/10/2021 10 :36 AM EDT documented as of this encounter Plan of Treatment Not on file documented as of this encounter Visit Diagnoses Not on filedocumented in this encounter
--- OUTSIDE RECORDS SUMMARY | 2024-12-06 18:58 | XMS_ITS | Encounter Summary ---
Author Organization [employer] Address [address] [facility] 7[address] [place] [address] Care Team Providers Care Postal Service Mail Processor Name Role Phone Unavailable Primary Care Provider Unavailabl e Encounter Details Date Type Department Care Team (Latest Contact Info) Description 04/20/2019 Abstract [facility] CONVERSIONS Dental, Provider, DDS Social History Tobacco [...]
--- OUTSIDE RECORDS SUMMARY | 2024-12-06 18:58 | XMS_ITS | Clinical Summary ---
Author Organization [facility] Address [address] [place] [phone] Phone Care Team Providers Care Family Practice Md Name Role Phone Mandie Christianson CAFETERIA FOOD SERVER Unavailable [phone] Brice Donato PA-C Primary Care Provider [phone] Allergies No known active allergies Medications citalopram (CELEXA) 40 MG tablet Take 1 tablet (40 mg total) by mouth daily. 90 tablet 3 03/07/2023 Active clonazePAM (KLONOPIN) 1 MG tablet Take 1 tablet (1 mg total) by mouth 2 (two) times a day as needed for anxiety. 60 tablet 11/03/2023 Active SUMAtriptan (IMITREX) 100 MG tabletIndicatio ns:History of migraine TAKE 1 TABLET BY MOUTH DIRECTED, CAN REPEAT DOSE IN 2 HOURS IF NEEDED, MAX OF 2 TABS PER DAY 9 tablet 11 03/24/2024 Active VYVANSE 40 mg capsule Take 40 mg by mouth every morning. 04/01/2024 Active lisdexamfetamin e (VYVANSE) 20 MG capsule Take 20 mg by mouth Every Afternoon. 05/12/2024 Active estradioL (VIVELLE-DOT) 0.05 mg/24 hrIndications:M enopausal symptoms Place 1 patch onto the skin 2 (two) times a week. 24 patch 3 08/02/2024 Active progesterone (PROMETRIUM) 200 mg capsuleIndicati ons:Menopausal symptoms Take 1 capsule (200 mg total) by mouth daily. 90 capsule 3 07/30/2024 Active Active Problems Problem Noted Date Diagnosed Date Menopausal symptoms 06/17/2024 Assessment & Plan (07/30/2024 4:46 PM EDT): The natural history of the menopausal transition was reviewed with the patient. I reviewed the definition of menopause as the last period confirmed by 12 months of no bleeding. She definitely meets this definition. In addition, she has had the onset of typical menopausal symptoms such as hot flashes and night sweats. She is interested in moving forward with some form of treatment for these hot flashes and night sweats. Currently, she is in the process of having diagnostic breast imaging for a newly discovered lump in the left breast. I did recommend that we hold off on any form of hormone therapy until her breast imaging has been completed. I explained that as she has an intact uterus, she would need both estrogen and progesterone. I explained that there is a small increased risk of breast cancer associated with the use of MHT when estrogen and progesterone are used together. I also reviewed the small increased risk of heart attack, stroke, and VTE. I explained that the risk of stroke and VTE can be significantly mitigated by the use of transdermal forms of estradiol and there may not be much risk associated with transdermal estradiol in terms of stroke and VTE. I did review that there could be some cardiovascular risk involved. However, her ASCVD risk kiln fireman plus calculator shows a current 10-year risk of 4.9% which is within acceptable limits for MHT. In addition to these risks, I did also reviewed some of the nuisance side effects that can occur with MHT including irregular bleeding during the first 3 to 6 months as well as breast tenderness and bloating. She will contact us when her breast imaging has been completed and we will consider prescribing at that time if appropriate. Mass of lower inner quadrant of left breast 05/13 Assessment & Plan (06/09/2024 12:17 PM EDT): On breast exam patient is noted to have a 1 cm mass located at the 6 o'clock position on the left breast. We will obtain a diagnostic mammogram bilaterally and an ultrasound of the left breast for further evaluation. Routine general medical exam ination at a [facility] facility 06/09/2024 Assessment & Plan (06/09/2024 12:20 PM EDT): Patient underwent labs that were drawn this morning for her physical to include CMP, fasting glucose, lipid panel and TSH level. Upon receiving the results I will reach out to her with recommendations Diagnostic mammogram bilaterally and an ultrasound of the left breast ordered secondary to breast mass Patient declines colonoscopy Follow-up annual physical 1 year Anxiety and depression 04/06/2024 Assessment & Plan (06/09/2024 12:19 PM EDT): Patient with a history of anxiety and depression who notes that she used to follow with a therapist however she is unable to see the therapist secondary to her therapist leaving the practice. patient has a call out to [facility] to obtain a new therapist. She continues on Klonopin 1 mg p.o. twice daily as needed and Celexa 40 mg daily. Her PHQ 9 score is 16 Migraine without aura and wi thout status migrainosus, not intractable 04/06/2024 Assessment & Plan (06/09/2024 12:16 PM EDT): With a history of migraines who is on Imitrex as needed however she mentions since being in menopause her migraines have been a lot less. Continue Imitrex as needed Hyperlipidemia 04/06/2024 Assessment & Plan (06/09/2024 12:16 PM EDT): Patient with a history of hyperlipidemia who is not on any medications. Her last LDL was noted in February 2023. We will repeat a lipid panel Attention deficit hyperactivity disorder (ADHD) 04/06/2024 Assessment & Plan (06/09/2024 12:17 PM EDT): Patient follows with Hans who is a management psychologist and follows with her every 6 weeks. Most recently she had her Vyvanse increased to 40 mg every morning with an additional 20 mg in the afternoon. Lesion of right eyelid 04/06/2024 S/P abdominoplasty 05/31/2022 S/P bilateral breast reduction 05/31/2022 History of migraine 03/26/2019 History of endometriosis 01/23/2018 Moderate episode of recurrent major depressive d isorder 01/23/2018 Assessment & Plan (08/19/2023 6:17 PM EDT): PHQ9 Flowsheet Row Office Visit from 08/18/2023 in [facility] PHQ-9 Total Score 19 Patient remains on waitlist for psychiatrist at [facility]. Encouraged to continue with Ericka Billy for therapy. Local psychiatry resources provided as well as list of neuropsych testing although she remains undecided if she is interested in pursuing. Current medications include: Celexa 40 mg daily and Clonazepam 1 mg twice daily. Assessment & Plan (03/06/2021 8:54 AM EST): Mood is stable though depression can play into the patient's fatigue. Resolved Problems Problem Noted Date Diagnosed Date Resolved Date Severe anxiety with panic 03/07/2023 Assessment & Plan (08/19/2023 6:17 PM EDT): JEFF-7 Total Score: 21 Patient remains on waitlist for psychiatrist at [facility]. Encouraged to continue with Ericka Billy for therapy. Local psychiatry resources provided as well as list of neuropsych testing although she remains undecided if she is interested in pursuing. Current medications include: Celexa 40 mg daily and Clonazepam 1 mg twice daily. Assessment & Plan (05/23/2023 2:51 PM EDT): We discussed continuation of lorazepam taper in the setting of dual benzodiazepine prescriptions with previous PCP. Currently taking 0.25 mg twice daily as needed. Next refill will be filled as 0.25 mg once daily as needed for severe anxiety. She continues with therapist Ericka Billy weekly. Continues to be on the waitlist for psychiatrist at [facility], we agree to keep remaining medications as previously prescribed until that appointment. Assessment & Plan (04/28/2023 11:06 AM EDT): We discussed my significant concern regarding the safety of dual benzodiazepine prescriptions she has been prescribed in the past especially in combination with polysubstance use including alcohol and cannabis. We mutually agreed to taper off of lorazepam prescription. The next 28 supply will be written for lorazepam 0.25 mg twice daily as needed for severe anxiety. The next prescription will be written for 0.25 mg once daily as needed for severe anxiety. She is currently on the waitlist for a psychiatrist at [facility] and notes that she believes she will be connected to care within a month. She prefers to wait until that appointment prior to discussing additional medications given her previous poor experience with discontinuing celexa. Patient gave permission for communication with therapist Ericka Billy. Call placed and awaiting call back to further discuss care. Impaired fasting blood sugar 04/12/2021 04/06/2024 [id number] syndrome manif esting as chronic fatigue 03/06/2021 04/06/2024 Assessment & Plan (03/06/2021 8:53 AM EST): Post Covid persisting fatigue, back pain, mild shortness of breath. Cough, productive cough, the symptoms could be regarding persisting Covid infection, obtain home test PCR. Consider ID consult if persisting positive Covid. Otherwise if by Friday more progress is lacking, will see the patient next week in office. At that point we can then assess lungs, obtain blood work etc. Restless leg 12/01/2019 04/06/2024 Elevated LDL cholesterol level 03/26/2019 04/06/2024 Menometrorrhagia 03/04/2018 04/06/2024 Assessment & Plan (03/04/2018 8:44 AM EST): Treatment options reviewed. Sx may or may not be related to endometriosis. Use on GnRH agonist reviewed and pt declines. Declines any hormonal treatment at this time. Feels sx did the best in the past after laparoscopy and excision of endometriosis. More definitive treatment with hyst and /or removal of ovary if dx confirmed reviewed. Pt declines at this time. Risks/benefits of laparoscopy reviewed. Pt desires to proceed. Irregular menses 01/23/2018 04/06/2024 Assessment & Plan (02/16/2018 4:03 PM EST): We reviewed normal exam findings and possible reasons for DUB including infection, hormonal changes, fibroids, polyps, endometrial hyperplasia. Will proceed with TSH, prolactin, CGC, SHG/MD consult. Ladan has tried OCPs, IUD, other hormonal methods over the years for treatment of heavy menses/cramping with little success and would like to discuss alternatives. Pelvic pain 01/23/2018 04/06/2024 Assessment & Plan (02/16/2018 4:05 PM EST): We discussed history endometriosis/dysmenorrhea with increasing pelvic pain/cramping/right sided hip/thigh pain and normal exam findings. Will proceed with MD consult. Encounters Date Type Department Care Team Description 12/06/2024 Telephone [facility] [address] [facility] [address] Margaret Rojas RN RUQ pain 11/12/2024 Telephone [facility] [address] [facility] [place] [address] Brice Donato PA-C 11/08/2024 [facility] GENERATED External System Generated Encounter [address] [place] [id number] Unknown, Unknown, 09/06/2024 Orders Only [facility] [address] [place] [address] Isrrael Corona MD Family history of heart disease (Primary Dx) from Last 3 Months Immunizations Immunization Administration Dates Next Due COVID-19 (Pre-12/02) Pfizer Vaccine, mRNA, PF ,06/02/2020 PPD Test 10/12/2013 Tdap 10/12/2013 Family History Medical History Relation Comments Heart disease Father Lung cancer Father Thyroid disease Father No Known Problems Mother Breast cancer Paternal Aunt Thyroid disease Sister 1 Thyroid disease Sister 2 No Known Problems Son 1 No Known Problems Son 2 Relation Status Comments Father Alive Mother Alive Paternal Aunt Sister 1 Alive Sister 2 Alive Son 1 Alive Son 2 Alive heart chambers m ildly enlarged per Echo Social History Tobacco Use Types Packs/Day Years Used Date Smoking Tobacco: Some Days Cigarettes 0.3 18.8 Started: 03/15/2004; Last attempted to quit: 03/15/2021 Smokeless Tobacco: Never Tobacco Cessation:Ready to Q uit: Not Asked; Counseling Given: Not Answered Comments:on and off Alcohol Use Standard Drinks/Week [...] high school, GED, job training, learning the [place] language, technical skills, or developing parenting skills)? [...] on file Sexual Orientation Not on file Last Filed Vital Signs Vital Sign Reading Time Taken Comments Blood Pressure 116/64 06/17/2024 10:07 AM EDT Pulse 67 06/09/2024 11:12 AM EDT Temperature 36.3 C (97.3 F) 04/24/2023 3:45 PM EDT Respiratory Rate 17 06/09/2024 11:12 AM EDT Oxygen Saturation 94% 06/09/2024 11:12 AM EDT Inhaled Oxygen Concentration - - Weight 102.5 kg (226 lb) 06/17/2024 10:07 AM EDT Height 165.1 cm (5' 5 ) 06/17/2024 10:07 AM EDT Body Mass Index 37.61 06/17/2024 10:07 AM EDT Plan of Treatment Upcoming Encounters Date Type Department Care Team (Late st Contact Info) Description 11/12/2024 Procedure Pass [facility] [address] [place] [address] 12/08/2024 10:00 AM EDT [facility] [address] [facility] [place] [address] Roxann Rocha PA-C [address] [place] [address] 12/30/2024 2:30 PM EST Appointment [facility] [address] [place] [address] Brice Donato PA-C [address] [place] [address] 06/13/2025 11:20 AM EDT Office Visit [facility] [address] [place], [place] [id number] Brice Donato PA-C [address] [place] [address] Health Maintenance Due Date Last Done Comments PNEUMOCOCCAL VACCINES (0-49 years) (1 of 2 - PCV) 05/29/1998 Adult Td,Tdap Booster 10/13/2023 10/12/2013 COLOGUARD 05/29/2024 COLONOSCOPY 05/29/2024 COLORECTAL CANCER SCREENING 05/29/2024 FIT TEST 05/29/2024 FOBT 05/29/2024 SIGMOIDOSCOPY 05/29/2024 VIRTUAL COLONOSCOPY 05/29/2024 REPEAT PHQ 07/09/2024 06/09/2024, 06/09/2024 INFLUENZA VACCINE (#1) 2024 COVID-19 VACCINE ( season) 2024 06/24/2020, 06/02/2020 DEPRESSION SCREENING 06/09/2025 06/09/2024, 06/10/19 SMOKING Hx and SMOKELESS TOBACCO SCREENING 06/28/2025 06/28/2024 PAP SMEAR 05/22/2026 05/23/2023, 03/14, 10/31/2016 MAMMOGRAM 06/28/2026 06/28/2024, 05/0 09/2022, 11/14/2020, Additional history exists SCREENING FOR DIABETES 06/10/2027 06/09/2024, 2024 LIPID PANEL 06/09/2029 06/09/2024, 02/11, 04/12/2021, Additional history exists HIV ONE-TIME SCREENING (18-65 YEARS) Completed 04/09/2019 HEPATITIS C SCREENING Completed 04/12/2021, 022 HEPATITIS A VACCINES Aged Out No long er eligible based on patient's age to complete this topic HIB VACCINES Aged Out No longer eligi ble based on patient's age to complete this topic MENINGOCOCCAL VACCINES (ACWY) Aged Out No longer eligible based on patient's age to complete this topic MENINGOCOCCAL VACCINES (B) Aged Out N o longer eligible based on patient's age to complete this topic Medical Devices Not on file Procedures Procedure Name Priority Date/Time Associated Diagnosis Comments BI MAMMOGRAM DIAGNOSTIC WITH TOMOSYNTHESIS WITH CAD (BILATERAL) Routine 06/28/2024 1:23 PM EDT Mass of lower inner quadrant of left breast LIPID PANEL Routine 06/09/2024 10:54 AM EDT Hyperlipidemia, unspecified hyperlipidemia type PAP TEST Routine 05/23/2023 12:00 AM EDT HEPATITIS C ANTIBODY, QUALITATIVE Routine 04/12/2021 2:46 PM EST Need for hepatitis C screening test from Last 3 Months or Most Recently Relevant to Health Maintenance Results * BI MAMMOGRAM DIAGNOSTIC WITH TOMOSYNTHESIS WITH CAD (BILATERAL) (06/28/2024 1:23 PM EDT) Anatomical Region Laterality Modality Breast Left, Breast Right, Breast Bilateral Bila teral Mammography 06/28/2024 1:34 PM EDT Impressions 06/28/2024 2:42 PM EDT 1. Benign findings on the right. No mammographic evidence of malignancy in the right breast. 2. No imaging findings to account for the questioned palpable area on the left. Further management of any persistent palpable finding should be based on the level of clinical concern. Negative imaging findings should not preclude biopsy of any clinically suspicious palpable finding. BI-RADS 2 BENIGN Results and recommendations were communicated to the patient at time of examination. Narrative 06/28/2024 2:42 PM EDT BI MAMMOGRAM DIAGNOSTIC WITH TOMOSYNTHESIS WITH CAD (BILATERAL), BI US BREAST LIMITED (LEFT) Additional patient information: Palpable area of concern in the inferior left breast. COMPARISON: Comparison is made with relevant prior imaging. Breast composition: The breasts are almost entirely fatty. FINDINGS: Right Mammogram: There are benign, rim type calcifications in the upper outer quadrant. Left Mammogram: There is no focal or suspicious mammographic correlate for the area of clinical concern. No abnormal masses, suspicious calcifications, or other significant findings are identified mammographically in the left breast. Left Ultrasound: Targeted ultrasound was performed in the area of clinical concern indicated on the order requisition. The patient is unable to identify the area. No sonographic abnormality is seen. us Brice Donato PA-C IMG MG EXAMS Final Result * (ABNORMAL) Lipid panel (06/09/2024 10:54 AM EDT) HDL 44 mg/dL [facility] Comment: Interpretation <40 mg/dL: Low HDL cholesterol (major risk factor for CHD) Greater than or equal to 60 mg/dL: High HDL cholesterol ( negative risk factor for CHD) HDL - cholesterol is affected by a number of factors, e.g. smoking, excerise, hormones, sex and age. CHOLESTEROL 256(H) 0 - 240 mg/dL [facility] TRIGLYCERIDES 176(H) 30 - 160 mg/dL [facility] LDL 177(H) 50 - 129 mg/dL [facility] Comment: LDL levels in terms of risk for coronary heart disease: <100 mg/dL: Optimal 100-129 mg/dL: Near or above optimal 130-159 mg/dL: Borderline high 160-189 mg/dL: High >190 mg/dL: Very High CARDIAC RISK RATIO 5.8(H) 3.3 - 4.4 C [facility] Blood 06/09/2024 10:5 4 AM EDT 06/09/2024 10:57 AM EDT us Brice Donato PA-C LAB BLOOD ORDERABLES Final Re sult [address] [address] * Pap Test (05/23/2023 12:00 AM EDT) Report [address] [address] Licensed Club Manager: Tanya Petit MD HIRED HELP Cytology Report FINAL DIAGNOSIS A. PAP SMEAR (SUREPATH) CE: SPECIMEN ADEQUACY: Satisfactory for evaluation; transformation zone absent/insufficien t. INTERPRETATION: NEGATIVE FOR INTRAEPITHELIAL LESION OR MALIGNANCY. Electronically Signed Out By: DARIUS Garzon(ASCP) The Pap test is a screening test primarily for squamous cancers and precursors and has associated false-negative and false-positive results. New technologies such as liquid-based preparations may decrease but will not eliminate all false-negative results. Regular sampling and follow-up of unexplained clinical signs and symptoms are recommended to minimize false negative results. PROCEDURES/ADDENDA HPV Testing (Requested) Ordered Date: 05/26/2023 A. PAP SMEAR (SUREPATH) CE: Human Papilloma Virus Test NEGATIVE for high-risk Human Papilloma Virus types 16, 18, 45 and the Other high risk probe set (Includes 31, 33, 35, 39, 51, 52, 56, 58, 59, 66, 68) Note: Testing performed by [facility] HR-HPV analysis. Clinical correlation is advised. This HPV test was performed at [facility], [address] [place] [address]. This test has been FDA approved for both SurePath and ThinPrep cervical cytology specimens. The accuracy and precision of this test for all other specimen sources has been verified in the Cytopathology Laboratory of the [facility] and has not been cleared or approved by the U.S. Food and Drug Administration. Clinical correlation is advised. CLINICAL HISTORY Date of Last Menstrual Period: 01-16-2023 Treatment History: Hormone Therapy Other Clinical Conditions: Screening Pap SPECIMEN SOURCE A: PAP SMEAR (SUREPATH) CE Patient Name: LADAN TREVIÑO : 1980 (Age: 42) Sex: F Institution: [facility] Location: [facility] Date of Collection: 05/23/2023 Date of Reported: 06/02/2023 13:44 Results to: Renata Dior MSN, VISITOR SERVICES INFORMATION ASSISTANT-B [facility] Final Diagnosis A. PAP SMEAR (SUREPATH) CE: SPECIMEN ADEQUACY: Satisfactory for evaluation; transformation zone absent/insufficien t. INTERPRETATION: NEGATIVE FOR INTRAEPITHELIAL LESION OR MALIGNANCY. [facility] Results\Inter pretation A. PAP SMEAR (SUREPATH) CE: Human Papilloma Virus TestNEGATIVE for high-risk Human Papilloma Virus types 16, 18, 45 and the Other high risk probe set (Includes 31, 33, 35, 39, 51, 52, 56, 58, 59, 66, 68)Note: Testing performed by [facility] HR-HPV analysis. Clinical correlation is advised. This HPV test was performed at [facility], [address] [place] [address]. This test has been FDA approved for both SurePath and ThinPrep cervical cytology specimens. The accuracy and precision of this test for all other specimen sources has been verified in the Cytopathology Laboratory of the [facility] and has not been cleared or approved by the U.S. Food and Drug Administration. Clinical correlation is advised. [facility] Conversion Type (Conversion Source) 05/23/2023 05/26/2023 9:25 AM EDT Renata Dior VISITOR SERVICES INFORMATION ASSISTANT CYTOLOGY ORDERABLES Edited Result - Final Performing Organization Address City/[facility] Co de Phone Number [facility] [address] [place] [address] * Hepatitis C antibody, qualitative (04/12/2021 2:46 PM EST) HCV NON-REACTIV E NON-REACTI VE [facility] Blood 04/12/2021 2:46 PM EST 04/12/2021 2:53 PM EST us Mandie Christianson CAFETERIA FOOD SERVER LAB BLOOD ORDERABLES Final Resu lt Performing Organization Address City/[facility]/ZIP Co de Phone Number [facility] [address] [place] [address] from Last 3 Months or Most Recently Relevant to Health Maintenance Insurance [address] [place], [place] [address]P [facility] Care Teams Family Practice Md Relationship Specialty Start Date End Date Brice Donato PA-C [address] [place] [phone] [email or web address] PCP - General Physician Tractor Distributor 04/02/24 Mandie Christianson NP Historical LMR Provider 11/27/16 Additional Source Comments The information contained in this document represents components of the legal health record. It is not the complete legal health record.[facility]
== END 2024-12-06 16:01 | disposition home or self-care (01) ==
LOC: HO.ED 15:59
PROVIDERS: Physician Assistant Medical; Emergency Provider Emergency Medicine; PCP Physician Assistant Surgical
DX: R10.13 Epigastric pain (principal); R11.0 Nausea; R42 Dizziness and giddiness; R06.02 Shortness of breath
CPT/HCPCS: 36415; 80053; 83690; 85025; 93005; 99283

== ENCOUNTER → 2024-12-06 13:21 | Outpatient (BNV) | payer MEDICAID, SELFPAY | PROVIDERS: Emergency Provider Emergency Medicine; PCP Physician Assistant Surgical; Visit Provider Internal Medicine | DX: R42 Dizziness and giddiness (principal); R06.02 Shortness of breath | CPT/HCPCS: 93010 ==